=== PATIENT | male | born 1955 | race Caucasian/White ===

== ENCOUNTER → 2016-10-23 | Outpatient (CLI) | payer OTHER ==
[2016-10-23] VITALS (9 sets, daily range): BP systolic 89–134; BP diastolic 43–66
[~2016-10-23] MED LIST: ACETAMINOPHEN 325 MG TABLET. PO ONE; CHOL100013 PO; CITA20TA5 PO; FUROSEMIDE 20 MG/2 ML VIAL. IVP ONE; FUROSEMIDE 20 MG/2 ML VIAL. ONE; GABA-586 PO; HEPARIN PF 500 UNIT/5 ML DISP.SYRIN. IV ONE; METO50TA2 PO; MORP30TA83 PO; OXYC5TAB PO; diphenhydrAMINE HCL 25 MG CAPSULE PO ONE
[2016-10-23 09:53] LABS: HEMATOCRIT 18.9 % (39.0-53.0); HEMOGLOBIN 6.2 g/dL (13.0-17.5)
== END | disposition home or self-care (01) ==
LOC: OPS 09:08
PROVIDERS: ATTEND Internal Medicine Hematology & Oncology
DX: C79.51 Secondary malignant neoplasm of bone (principal); C67.9 Malignant neoplasm of bladder, unspecified; D64.9 Anemia, unspecified
CPT/HCPCS: 36415; 36430; 85014; 85018; 86850; 86900; 86901; 86920; P9016; Q0163